=== PATIENT | female | born 1955 | race Hispanic/Latino ===

== ENCOUNTER 2018-02-12 10:05 | Emergency (ER) | payer MEDICAID ==
[2018-02-12] MEDS ORDERED: SODIUM CHLORIDE 0.9% 1000ML 1,000 ML IV ONE (10:24)
[2018-02-12] MEDS ORDERED: ONDANSETRON HCL 4 MG/2 ML VIAL ONE (10:24)
[2018-02-12 12:02] LABS: CREATININE 0.6 mg/dL (0.5-1.5); POTASSIUM 4.3 mmol/L (3.5-5.1)
[2018-02-12 12:03] LABS: BASOPHILS % (AUTO) 0.4 % (0.0-5.0); EOSINOPHILS % (AUTO) 1.5 % (0.0-8.0); HEMATOCRIT 38.1 % (36-48); LYMPHOCYTES % (AUTO) 20.2 % (21.0-51.0); MEAN CORPUSCULAR HEMOGLOBIN 28.8 pg (27.0-33.0); MEAN CORPUSCULAR HGB CONC 34.3 g/dL (32.0-36.0); MEAN CORPUSCULAR VOLUME 83.7 fL (79-99); MONOCYTES % (AUTO) 6.9 % (3.0-13.0); PLATELET COUNT (AUTO) 188 K/uL (130-400); RED BLOOD CELL COUNT(AUTO) 4.55 MIL/uL (4.00-5.50); RED CELL DISTRIBUTION WIDTH 14.1 % (11.0-15.5); WHITE BLOOD COUNT (AUTO) 6.2 K/uL (4.8-10.8)
[2018-02-12 12:07] LABS: ALBUMIN 3.6 g/dL (3.5-5.0); BILIRUBIN,DIRECT 0.1 mg/dL (0.0-0.3); BILIRUBIN,TOTAL 0.4 mg/dL (0.2-1.0); TOTAL PROTEIN, SERUM 7.5 g/dL (6.0-8.3)
[2018-02-12] MEDS ORDERED: ACETAMINOPHEN 325 MG TAB ONE (12:16)
[2018-02-12 12:30] LABS: B-TYPE NATRIURETIC PEPTIDE 12 pg/mL (0-100)
== END 2018-02-12 12:48 | disposition home or self-care (01) ==
LOC: EDH 10:05
DX: R42 Dizziness and giddiness (principal); J32.9 Chronic sinusitis, unspecified; E78.5 Hyperlipidemia, unspecified; I10 Essential (primary) hypertension; E11.9 Type 2 diabetes mellitus without complications; Z98.890 Other specified postprocedural states
CPT/HCPCS: 36415; 70450; 80048; 80076; 82550; 82948; 83880; 84484; 85025; 93005; 96361; 96374; 99285; J2405; J7030

== ENCOUNTER 2019-02-05 17:02 | Emergency (ER) | payer MEDICAID | END 2019-02-05 19:50 | disposition home or self-care (01) | LOC: EDH 17:02 | DX: M25.531 Pain in right wrist (principal); M25.561 Pain in right knee; I10 Essential (primary) hypertension; E78.5 Hyperlipidemia, unspecified; E11.9 Type 2 diabetes mellitus without complications; W18.39XA Other fall on same level, initial encounter; Y93.01 Activity, walking, marching and hiking; Y92.89 Other specified places as the place of occurrence of the external cause; Y99.8 Other external cause status | CPT/HCPCS: 29125; 73110; 73562 ==

== ENCOUNTER → 2019-08-02 | Outpatient (CLI) | payer MEDICAID | END | disposition home or self-care (01) | LOC: SHCH 10:41 | PROVIDERS: ATTEND Internal Medicine Cardiovascular Disease | DX: R94.31 Abnormal electrocardiogram [ECG] [EKG] (principal) | CPT/HCPCS: 93306 ==

== ENCOUNTER 2019-09-03 22:45 | Emergency (ER) | payer MEDICAID ==
[2019-09-03 23:52] LABS: BASOPHILS % (AUTO) 0.5 % (0.0-5.0); HEMATOCRIT 37.2 % (36-48); LYMPHOCYTES % (AUTO) 39.5 % (21.0-51.0); MEAN CORPUSCULAR HEMOGLOBIN 27.6 pg (27.0-33.0); MEAN CORPUSCULAR HGB CONC 33.3 g/dL (32.0-36.0); MEAN CORPUSCULAR VOLUME 82.7 fL (79-99); NEUTROPHILS % (AUTO) 48.7 % (40.0-77.0); PLATELET COUNT (AUTO) 235 K/uL (130-400); RED CELL DISTRIBUTION WIDTH 12.9 % (11.0-15.5); WHITE BLOOD COUNT (AUTO) 6.2 K/uL (4.8-10.8)
[2019-09-03 23:59] LABS: APPEARANCE,URINE Clear (CLEAR); BILIRUBIN,URINE Negative (NEGATIVE); COLOR,URINE Yellow (YELLOW); GLUCOSE, URINE (UA) >=1000 mg/dL (NEGATIVE); KETONES,URINE Negative (NEGATIVE); LEUKOCYTE ESTERASE ,URINE Negative (NEGATIVE); NITRATE,URINE Positive (NEGATIVE); OCCULT BLOOD,URINE Negative (NEGATIVE); PH,URINE 6.5 (5.0-8.0); PROTEIN,URINE Negative (NEGATIVE)
[2019-09-04 00:07] LABS: CREATININE 0.6 mg/dL (0.5-1.5); INR 0.94 (0.85-1.15); PARTIAL THROMBOPLASTIN TIME 27.7 SEC (26.3-35.5); POTASSIUM 3.7 mmol/L (3.5-5.1); PROTHROMBIN TIME 9.9 SEC (9.6-11.6)
[2019-09-04 00:10] LABS: BACTERIA,URINE Moderate /HPF (None Seen); RBC,URINE None Seen /HPF (0-1); SQUAMOUS EPITHELIAL CELL,UR Rare /HPF (0-2); WBC,URINE None Seen /HPF (0-1); YEAST,URINE BUDDING None Seen /HPF (None Seen)
[2019-09-04 00:12] LABS: ALBUMIN 3.8 g/dL (3.5-5.0); BILIRUBIN,TOTAL 0.3 mg/dL (0.2-1.0); TOTAL PROTEIN, SERUM 7.7 g/dL (6.0-8.3)
[2019-09-04 00:25] LABS: B-TYPE NATRIURETIC PEPTIDE 11 pg/mL (0-100)
[2019-09-04] MEDS ORDERED: KETOROLAC TROMETHAMINE 15MG/ML ONE (01:49)
[2019-09-04] MEDS ORDERED: CLONIDINE HCL 0.1 MG TABLET ONE (02:29)
[2019-09-04] MEDS ORDERED: DiphenhydrAMINE HCL 50 MG/ML VIAL ONE (02:29)
[2019-09-04] MEDS ORDERED: CEFTRIAXONE SODIUM 1 GM ONE (02:29)
== END 2019-09-04 06:29 | disposition home or self-care (01) ==
LOC: EDH 22:45
DX: J01.00 Acute maxillary sinusitis, unspecified (principal); I10 Essential (primary) hypertension; R07.89 Other chest pain; E11.9 Type 2 diabetes mellitus without complications; E78.5 Hyperlipidemia, unspecified; Z86.73 Personal history of transient ischemic attack (TIA), and cerebral infarction without residual deficits; Z90.710 Acquired absence of both cervix and uterus; Z98.890 Other specified postprocedural states
CPT/HCPCS: 36415; 70450; 71045; 72125; 80053; 81001; 82550; 83880; 84484 ×2; 85025; 85610; 85730; 93005 ×2; 96374; 96375; 99285; J0696; J1200; J1885

== ENCOUNTER → 2019-09-24 | Outpatient (CLI) | payer MEDICAID ==
[~2019-09-24] VITALS: Ht 154.9 cm; Wt 69.9 kg
[~2019-09-24] MED LIST: REGADENOSON 0.4 MG/5 ML PF SYG IVP SCH
== END | disposition home or self-care (01) ==
LOC: SHCH 08:01
PROVIDERS: ATTEND Internal Medicine Cardiovascular Disease
DX: R07.9 Chest pain, unspecified (principal); I25.2 Old myocardial infarction
CPT/HCPCS: 78452; 93017; 96374; A9500 ×2; J2785

== ENCOUNTER 2019-12-01 15:27 | Inpatient (IN) | payer MEDICAID ==
[~2019-12-01] VITALS: Ht 147.3 cm; Wt 66.9 kg
[2019-12-01 16:00] LABS: BASOPHILS % (AUTO) 0.5 % (0.0-5.0); EOSINOPHILS % (AUTO) 2.1 % (0.0-8.0); HEMATOCRIT 38.1 % (36-48); LYMPHOCYTES % (AUTO) 25.1 % (21.0-51.0); MEAN CORPUSCULAR HEMOGLOBIN 27.6 pg (27.0-33.0); MEAN CORPUSCULAR HGB CONC 32.8 g/dL (32.0-36.0); MEAN CORPUSCULAR VOLUME 84.1 fL (79-99); MONOCYTES % (AUTO) 6.4 % (3.0-13.0); NEUTROPHILS % (AUTO) 65.7 % (40.0-77.0); PLATELET COUNT (AUTO) 268 K/uL (130-400); RED BLOOD CELL COUNT(AUTO) 4.53 MIL/uL (4.00-5.50); RED CELL DISTRIBUTION WIDTH 13.1 % (11.0-15.5); WHITE BLOOD COUNT (AUTO) 8.7 K/uL (4.8-10.8)
[2019-12-01 16:19] LABS: CREATININE 0.9 mg/dL (0.5-1.5); POTASSIUM 4.3 mmol/L (3.5-5.1)
[2019-12-01 16:23] LABS: ALBUMIN 3.6 g/dL (3.5-5.0); BILIRUBIN,TOTAL 0.4 mg/dL (0.2-1.0); TOTAL PROTEIN, SERUM 7.7 g/dL (6.0-8.3)
[2019-12-01 16:24] LABS: INR 0.89 (0.85-1.15); PARTIAL THROMBOPLASTIN TIME 27.1 SEC (26.3-35.5); PROTHROMBIN TIME 9.7 SEC (9.6-11.6)
[2019-12-01] MEDS: SODIUM CHLORIDE 0.9% 1000ML 1,000 ML IV SCH (18:40)
[2019-12-01] MEDS ORDERED: DIPHENHYDRAMINE HCL 25 MG CAPSULE PO PRN (18:45)
[2019-12-01] MEDS ORDERED: DEXTROSE 50%-WATER 50 ML DISP.SYRIN IV PRN (18:45)
[2019-12-01] MEDS ORDERED: ACETAMINOPHEN 325 MG TAB PO PRN ×2 (18:45)
[2019-12-01] MEDS ORDERED: ONDANSETRON HCL 4 MG/2 ML VIAL IV PRN (18:45)
[2019-12-01] MEDS ORDERED: NITROGLYCERIN 0.4 MG SL TAB SL PRN (18:45)
[2019-12-01] MEDS ORDERED: GLUCAGON 1MG KIT 1 MG ML IM PRN (18:45)
[2019-12-01] MEDS ORDERED: FAMOTIDINE/PF 20 MG/2 ML VIAL IV ONE (19:46)
[2019-12-01] MEDS ORDERED: SODIUM CHLORIDE 0.9% 1000ML 1,000 ML IV ONE (19:46)
[2019-12-01 19:57] LABS: APPEARANCE,URINE Clear (CLEAR); BILIRUBIN,URINE Negative (NEGATIVE); COLOR,URINE Yellow (YELLOW); GLUCOSE, URINE (UA) >=1000 mg/dL (NEGATIVE); KETONES,URINE Negative (NEGATIVE); LEUKOCYTE ESTERASE ,URINE Negative (NEGATIVE); NITRATE,URINE Negative (NEGATIVE); OCCULT BLOOD,URINE Negative (NEGATIVE); PH,URINE 5.5 (5.0-8.0); PROTEIN,URINE Negative (NEGATIVE)
[2019-12-01 20:05] LABS: AMPHET/METH SCREEN,URINE NEGATIVE (NEGATIVE); BARBITURATE SCREEN, URINE NEGATIVE (NEGATIVE); BENZODIAZEPINES SCREEN,URINE NEGATIVE (NEGATIVE); CANNABINOID SCREEN,URINE NEGATIVE (NEGATIVE); COCAINE SCREEN,URINE NEGATIVE (NEGATIVE); OPIATE SCREEN,URINE NEGATIVE (NEGATIVE); PHENCYCLIDINE SCREEN,URINE NEGATIVE (NEGATIVE)
[2019-12-01 20:06] LABS: BACTERIA,URINE Few /HPF (None Seen)
[2019-12-01 20:07] LABS: MUCUS,URINE Few LPF (None Seen); SQUAMOUS EPITHELIAL CELL,UR 0-2 /HPF (0-2)
[2019-12-01] MEDS: ENOXAPARIN SODIUM 30 MG/0.3 ML SQ SCH (20:15)
[2019-12-01] MEDS: ASPIRIN 81 MG EC TAB PO SCH (20:15)
[2019-12-01] MEDS: CLOPIDOGREL BISULFATE 75 MG TAB PO SCH (20:15)
[2019-12-01] MEDS ORDERED: IOHEXOL-350 75 ML VIAL IV ONE (20:16)
[2019-12-01] MEDS ORDERED: ASPIRIN 81MG TAB.CHEW ONE (20:25)
[2019-12-01] MEDS ORDERED: ENOXAPARIN SODIUM 30 MG/0.3 ML SQ ONE (20:26)
[2019-12-01] MEDS ORDERED: CLOPIDOGREL BISULFATE 75 MG TAB ONE (20:26)
[2019-12-01 20:44] LABS: CREATINE KINASE, TOTAL 61 U/L (21-232); MYOGLOBIN 35 ng/mL (10-92); TROPONIN I < 0.04 ng/mL (0.00-0.06)
[2019-12-01] MEDS: FAMOTIDINE/PF 20 MG/2 ML VIAL IV SCH (21:00)
[2019-12-01] MEDS: INSULIN HUMULIN R 100 UNIT/ML 3ML SQ SCH (21:00)
[2019-12-02] VITALS (7 sets, daily range): BP systolic 131–167; BP diastolic 58–75
[2019-12-02 00:49] LABS: CREATINE KINASE, TOTAL 37 U/L (21-232); MYOGLOBIN 28 ng/mL (10-92); TROPONIN I < 0.04 ng/mL (0.00-0.06)
[2019-12-02] MEDS: SODIUM CHLORIDE 0.9% 1000ML 1,000 ML IV SCH ×2 (04:37→12:08)
[2019-12-02] MEDS: INSULIN HUMULIN R 100 UNIT/ML 3ML SQ SCH ×6 (05:41→19:38)
[2019-12-02 08:39] LABS: HEMATOCRIT 42.2 % (36-48); MEAN CORPUSCULAR HEMOGLOBIN 27.4 pg (27.0-33.0); MEAN CORPUSCULAR HGB CONC 32.7 g/dL (32.0-36.0); MEAN CORPUSCULAR VOLUME 83.7 fL (79-99); PLATELET COUNT (AUTO) 246 K/uL (130-400); RED BLOOD CELL COUNT(AUTO) 5.04 MIL/uL (4.00-5.50); RED CELL DISTRIBUTION WIDTH 13.2 % (11.0-15.5); WHITE BLOOD COUNT (AUTO) 6.7 K/uL (4.8-10.8)
[2019-12-02] MEDS ORDERED: ASPIRIN 325 MG TABLET PO SCH (09:00)
[2019-12-02] MEDS ORDERED: CLOPIDOGREL BISULFATE 75 MG TAB PO SCH (09:00)
[2019-12-02] MEDS ORDERED: ENOXAPARIN SODIUM 30 MG/0.3 ML SQ SCH (09:00)
[2019-12-02 09:49] LABS: ALBUMIN 3.6 g/dL (3.5-5.0); BILIRUBIN,TOTAL 0.4 mg/dL (0.2-1.0); CREATININE 0.8 mg/dL (0.5-1.5); EOSINOPHILS % (MANUAL) 4 % (1-6); LYMPHOCYTES % (MANUAL) 27 % (22-44); MAGNESIUM 1.9 mg/dL (1.80-2.40); MAN.DIFF COMMENT-IMPRESSION MANUAL DIFFERENTIAL; MONOCYTES % (MANUAL) 9 % (2-9); POTASSIUM 3.8 mmol/L (3.5-5.1); REACTIVE LYMPHOCYTES 1 % (0-0); SEGMENTED NEUTROPHILS % 59 % (40-70); TOTAL PROTEIN, SERUM 7.7 g/dL (6.0-8.3)
[2019-12-02 09:50] LABS: PLATELET MORPHOLOGY COMMENT ADEQUATE
[2019-12-02] MEDS: ASPIRIN 81 MG EC TAB PO SCH (11:13)
[2019-12-02] MEDS: FAMOTIDINE/PF 20 MG/2 ML VIAL IV SCH ×2 (11:14→21:12)
[2019-12-02] MEDS: CLOPIDOGREL BISULFATE 75 MG TAB PO SCH (11:14)
[2019-12-02] MEDS: ENOXAPARIN SODIUM 30 MG/0.3 ML SQ SCH (11:16)
--- NOTE | 2019-12-02 13:11 | NUR ---
PAGED DR. JAIN RE: CONSULT, RETURNED CALL AND STATED PT. NEEDS NEUROLOGIST, ORDER TO CONSULT DR. ARTHUR ALREADY IN PLACE
--- NOTE | 2019-12-02 18:50 | NUR ---
DR. JAIN HERE NOW TO SEE PT, VISITED WITH PT. AND REVIEWED IMAGES, STATES ON `RIGHT MEDICATION
[2019-12-02] MEDS: ATORVASTATIN CALCIUM 20 MG TABLET PO SCH (21:12)
[2019-12-03] VITALS (7 sets, daily range): BP systolic 135–185; BP diastolic 48–79
[2019-12-03] MEDS: SODIUM CHLORIDE 0.9% 1000ML 1,000 ML IV SCH ×2 (00:40→20:40)
[2019-12-03] MEDS: INSULIN HUMULIN R 100 UNIT/ML 3ML SQ SCH ×8 (05:18→20:37)
[2019-12-03 06:01] LABS: BASOPHILS % (AUTO) 0.4 % (0.0-5.0); EOSINOPHILS % (AUTO) 2.7 % (0.0-8.0); HEMATOCRIT 38.2 % (36-48); LYMPHOCYTES % (AUTO) 32.5 % (21.0-51.0); MEAN CORPUSCULAR HEMOGLOBIN 27.9 pg (27.0-33.0); MEAN CORPUSCULAR HGB CONC 33.2 g/dL (32.0-36.0); MONOCYTES % (AUTO) 8.9 % (3.0-13.0); PLATELET COUNT (AUTO) 229 K/uL (130-400); RED BLOOD CELL COUNT(AUTO) 4.55 MIL/uL (4.00-5.50); WHITE BLOOD COUNT (AUTO) 5.5 K/uL (4.8-10.8)
[2019-12-03 06:39] LABS: CREATININE 0.7 mg/dL (0.5-1.5); POTASSIUM 3.5 mmol/L (3.5-5.1)
[2019-12-03] MEDS: ASPIRIN 81 MG EC TAB PO SCH (08:40)
[2019-12-03] MEDS: CLOPIDOGREL BISULFATE 75 MG TAB PO SCH (08:40)
[2019-12-03] MEDS: ENOXAPARIN SODIUM 30 MG/0.3 ML SQ SCH (08:42)
[2019-12-03] MEDS: FAMOTIDINE/PF 20 MG/2 ML VIAL IV SCH ×2 (08:42→22:35)
--- NOTE | 2019-12-03 11:40 | NUR ---
PAGED HOSPITALIST PAGED ANSWERING SERVICE TO REPORTS ELEVATED BLOOD PRESSURE READING 185/68. PATIENT ASYMPTOMATIC AND SITTING UP IN CHAIR AT THIS TIME.
[2019-12-03] MEDS ORDERED: EMPA10TA PO (16:15)
[2019-12-03] MEDS ORDERED: METO25TA6 PO (16:15)
[2019-12-03] MEDS ORDERED: ASPI81TA40 PO (16:15)
[2019-12-03] MEDS ORDERED: ATOR40TA69 PO (16:15)
[2019-12-03] MEDS ORDERED: BISA5TAB12 PO (16:15)
[2019-12-03] MEDS ORDERED: HYDR25TA PO (16:15)
[2019-12-03] MEDS ORDERED: LORA10TA7 PO (16:15)
[2019-12-03] MEDS ORDERED: PREG100C PO (16:15)
[2019-12-03] MEDS ORDERED: VENL-63 PO (16:15)
[2019-12-03] MEDS ORDERED: PANT40TA25 PO (16:15)
[2019-12-03] MEDS ORDERED: METF-446 PO (16:15)
[2019-12-03] MEDS ORDERED: ISOS20TA7 PO (16:15)
[2019-12-03] MEDS ORDERED: LINA145C PO (16:15)
[2019-12-03] MEDS ORDERED: LOSA100T58 PO (16:15)
--- NOTE | 2019-12-03 16:52 | NUR ---
CM NOTE MEET WITH PATIENT IN ROOM. PER PATIENT, LIVES WITH SPOUSE AND ADULT SON, IS INDEPENDENT WITH ADLS, HAS PROVIDER 2HR DAILY TUE-TUESDAY AND 1HR PER DAY SAT-SUN, HAS USE OF CANE AND FEELS SAFE AT HOME. PENDING MD RECOMMENDATIONS. CM TO FOLLOW UP Addendum: 12/04/19 at 1654 by GARO ESPANA RN CM Amended: Links added.
[2019-12-03] MEDS: ATORVASTATIN CALCIUM 20 MG TABLET PO SCH (22:34)
[2019-12-04 03:46] VITALS: BP 126/62
[2019-12-04] MEDS: INSULIN HUMULIN R 100 UNIT/ML 3ML SQ SCH ×4 (05:50→12:07)
[2019-12-04 07:28] VITALS: BP 144/64
[2019-12-04] MEDS ORDERED: HYDROCHLOROTHIAZIDE 25 MG TABLET PO SCH (09:00)
[2019-12-04] MEDS: FAMOTIDINE/PF 20 MG/2 ML VIAL IV SCH (09:00)
[2019-12-04] MEDS ORDERED: ISOSORBIDE MONONITRATE 20 MG TABLET PO SCH (09:00)
[2019-12-04] MEDS ORDERED: LORATADINE 10 MG TABLET PO SCH (09:00)
[2019-12-04] MEDS: ASPIRIN 81 MG EC TAB PO SCH (09:00)
[2019-12-04] MEDS ORDERED: PANTOPRAZOLE SODIUM 40 MG TABLET.DR PO SCH (09:05)
[2019-12-04] MEDS: CLOPIDOGREL BISULFATE 75 MG TAB PO SCH (09:59)
[2019-12-04] MEDS: ENOXAPARIN SODIUM 30 MG/0.3 ML SQ SCH (10:00)
[2019-12-04 10:55] VITALS: BP 119/62
[2019-12-04] MEDS ORDERED: CLOP75TA14 PO (12:52)
--- NOTE | 2019-12-04 16:15 | NUR ---
DISCHARGE DISCHARGE TEACHING PROVIDED TO PATIENT. INFORMED OF SCHEDULED F/U WITH DR. BOND, REFERRAL NEEDED TO SCHEDULE F/U WITH DR. ARTHUR. PATIENT STATES SHE HAS F/U APPT SCHEDULED WITH HER PRIMARY MD. EDUCATIONS PROVIDED NEW RX (PLAVIX) AND CONTINUE HOME MEDICATIONS, INCLUDING HOME MEDICATION ASPIRIN AND ATORVASTATIN TO PREVENT FUTURE TIA AND REDUCE CHOLESTEROL LEVELS. INFORMED TO STOP HOME MEDICATION METOPROLOL UNTIL OKAYED TO RESUME BY PRIMARY MD. PROVIDED STROKE EDUCATION TEACHING. PATIENT VERBALIZED UNDERSTANDING OF DISCHARGE TEACHING. REMOVED 20G IV FROM RIGHT AC, CATHETER TIP INTACT. REMOVED TELE MONITOR. PATIENT TO BE DRIVEN HOME BY HER .
[2019-12-04] MEDS ORDERED: **HM**(Linaclotide (Linzess) 145 MCG) PO SCH (16:30)
[2019-12-04] MEDS ORDERED: VENLAFAXINE HCL XR 37.5 MG CAP PO SCH (21:00)
== END 2019-12-04 16:25 | disposition home or self-care (01) | DRG 47 ==
LOC: EDH 15:27 → EDHIP 15:28 → 3AH 12-02 01:37
PROVIDERS: ADMIT Hospitalist; ATTEND Hospitalist
DX: G45.9 Transient cerebral ischemic attack, unspecified (principal); E11.9 Type 2 diabetes mellitus without complications; I65.22 Occlusion and stenosis of left carotid artery; E66.9 Obesity, unspecified; I10 Essential (primary) hypertension; E78.5 Hyperlipidemia, unspecified; Z87.891 Personal history of nicotine dependence; Z90.710 Acquired absence of both cervix and uterus; Z79.84 Long term (current) use of oral hypoglycemic drugs; Z86.73 Personal history of transient ischemic attack (TIA), and cerebral infarction without residual deficits; Z68.30 Body mass index [BMI] 30.0-30.9, adult; Z79.899 Other long term (current) drug therapy
CPT/HCPCS: 36415; 70450; 70496; 70498; 70551; 71045; 80048; 80053; 80305; 81001; 82550; 82948; 83036; 83721; 83735; 83874; 84484; 85025; 85610; 85730; 93005; 93306; 93356; 99291; G0378; J1650; J1815; J3490; J7030; Q9967

== ENCOUNTER 2020-01-05 14:34 | Emergency (ER) | payer MEDICAID ==
[~2020-01-05 14:34] MED LIST changes: +ASPI81TA40 PO; +ATOR40TA69 PO; +BISA5TAB12 PO; +CLOP75TA14 PO; +EMPA10TA PO; +HYDR25TA PO; +ISOS20TA7 PO; +LINA145C PO; +LORA10TA7 PO; +LOSA100T58 PO; +METF-446 PO; +PANT40TA25 PO; +PREG100C PO; -REGADENOSON 0.4 MG/5 ML PF SYG IVP SCH; +VENL-63 PO
[2020-01-05 15:21] LABS: BASOPHILS % (AUTO) 0.3 % (0.0-5.0); EOSINOPHILS % (AUTO) 2.7 % (0.0-8.0); HEMATOCRIT 38.9 % (36-48); LYMPHOCYTES % (AUTO) 21.7 % (21.0-51.0); MEAN CORPUSCULAR HEMOGLOBIN 28.3 pg (27.0-33.0); MEAN CORPUSCULAR HGB CONC 33.4 g/dL (32.0-36.0); MEAN CORPUSCULAR VOLUME 84.6 fL (79-99); PLATELET COUNT (AUTO) 281 K/uL (130-400); RED CELL DISTRIBUTION WIDTH 12.7 % (11.0-15.5); WHITE BLOOD COUNT (AUTO) 10.9 K/uL (4.8-10.8)
[2020-01-05 15:38] LABS: CREATININE 1.4 mg/dL (0.5-1.5); POTASSIUM 3.2 mmol/L (3.5-5.1)
[2020-01-05 15:43] LABS: ALBUMIN 3.5 g/dL (3.5-5.0); BILIRUBIN,TOTAL 0.2 mg/dL (0.2-1.0); TOTAL PROTEIN, SERUM 7.1 g/dL (6.0-8.3)
[2020-01-05] MEDS ORDERED: POTASSIUM CHLORIDE 20 MEQ ERTAB PO ONE (16:04)
[2020-01-05] MEDS ORDERED: ACETAMINOPHEN 325 MG TAB ONE (18:05)
[2020-01-05 18:06] LABS: APPEARANCE,URINE Clear (CLEAR); BILIRUBIN,URINE Negative (NEGATIVE); COLOR,URINE Yellow (YELLOW); GLUCOSE, URINE (UA) >=1000 mg/dL (NEGATIVE); KETONES,URINE Negative (NEGATIVE); LEUKOCYTE ESTERASE ,URINE Trace (NEGATIVE); NITRATE,URINE Negative (NEGATIVE); OCCULT BLOOD,URINE Negative (NEGATIVE); PROTEIN,URINE Negative (NEGATIVE); UROBILINOGEN,URINE 0.2 mg/dL (0.2-1.0)
[2020-01-05 18:14] LABS: BACTERIA,URINE Rare /HPF (None Seen); RBC,URINE 0-1 /HPF (0-1); WBC,URINE 0-1 /HPF (0-1); YEAST,URINE BUDDING Few /HPF (None Seen)
[2020-01-05 18:15] LABS: SQUAMOUS EPITHELIAL CELL,UR Few /HPF (0-2)
== END 2020-01-05 18:45 | disposition home or self-care (01) ==
LOC: EDH 14:34
DX: I10 Essential (primary) hypertension (principal); R53.1 Weakness; E11.9 Type 2 diabetes mellitus without complications; E78.5 Hyperlipidemia, unspecified; Z90.49 Acquired absence of other specified parts of digestive tract; Z90.710 Acquired absence of both cervix and uterus; Z98.890 Other specified postprocedural states
CPT/HCPCS: 36415; 70450; 73610; 73630; 80053; 81001; 85025

== ENCOUNTER 2021-05-05 03:09 | Emergency (ER) | payer MEDICAID ==
[~2021-05-05] VITALS: Ht 149.9 cm; Wt 74.4 kg
[~2021-05-05 03:09] MED LIST changes: -ISOS20TA7 PO; +ISOS20TA85 PO; -PANT40TA25 PO; +PANT40TA54 PO
[2021-05-05 04:08] VITALS: BP 171/47
[2021-05-05] MEDS ORDERED: ONDANSETRON 4MG INJ IVP ONE (05:30)
[2021-05-05] MEDS ORDERED: 0.9%NACL 1000ML 1,000 ML IV ONE (05:30)
[2021-05-05] MEDS ORDERED: MORPHINE 5 MG/ML VIAL (5MG OR GREATER DOSE) IV ONE (05:30)
[2021-05-05 06:03] LABS: INR 0.94 (0.85-1.15); PROTHROMBIN TIME 10.3 SEC (9.6-11.6)
[2021-05-05 06:04] LABS: PARTIAL THROMBOPLASTIN TIME 28.2 SEC (26.3-35.5)
[2021-05-05 06:08] LABS: CREATININE 0.7 mg/dL (0.5-1.5); POTASSIUM 3.7 mmol/L (3.5-5.1)
[2021-05-05] MEDS ORDERED: METH-662 PO (07:22)
[2021-05-05] MEDS ORDERED: TRAM50TA4 PO (07:22)
[2021-05-05] MEDS ORDERED: ORPHENADRINE CITRATE 30 MG/ML ML IV SCH (07:30)
== END 2021-05-05 08:00 | disposition home or self-care (01) ==
LOC: EDH 03:09
DX: S20.212A Contusion of left front wall of thorax, initial encounter (principal); M62.830 Muscle spasm of back; S80.212A Abrasion, left knee, initial encounter; I10 Essential (primary) hypertension; F32.9 Major depressive disorder, single episode, unspecified; E11.9 Type 2 diabetes mellitus without complications; E78.00 Pure hypercholesterolemia, unspecified; Z79.84 Long term (current) use of oral hypoglycemic drugs; Z79.82 Long term (current) use of aspirin; Z98.890 Other specified postprocedural states; Z79.899 Other long term (current) drug therapy; W18.39XA Other fall on same level, initial encounter; Y93.89 Activity, other specified; Y92.89 Other specified places as the place of occurrence of the external cause; Y99.8 Other external cause status
CPT/HCPCS: 36415; 71101; 72040; 73030; 80048; 82550; 85610; 85730; 96361; 96374; 96375; 99284; J2270; J2360; J2405; J7030

== ENCOUNTER 2022-05-17 11:15 | Emergency (ER) | payer MEDICAID ==
[~2022-05-17] VITALS: Ht 157.5 cm; Wt 71.7 kg
[~2022-05-17 11:15] MED LIST changes: +METH-662 PO; +TRAM50TA4 PO
[2022-05-17 11:49] LABS: BASOPHILS % (AUTO) 0.4 % (0.0-5.0); EOSINOPHILS % (AUTO) 1.7 % (0.0-8.0); HEMATOCRIT 38.3 % (36-48); LYMPHOCYTES % (AUTO) 24.6 % (21.0-51.0); MEAN CORPUSCULAR HGB CONC 32.9 g/dL (32.0-36.0); MEAN CORPUSCULAR VOLUME 82.2 fL (79-99); MONOCYTES % (AUTO) 6.2 % (3.0-13.0); NEUTROPHILS % (AUTO) 66.7 % (40.0-77.0); PLATELET COUNT (AUTO) 255 K/uL (130-400); RED BLOOD CELL COUNT(AUTO) 4.66 MIL/uL (4.00-5.50); RED CELL DISTRIBUTION WIDTH 14.3 % (11.0-15.5); WHITE BLOOD COUNT (AUTO) 8.4 K/uL (4.8-10.8)
[2022-05-17 12:12] LABS: CREATININE 0.8 mg/dL (0.5-1.5); POTASSIUM 4.8 mmol/L (3.5-5.1)
[2022-05-17 12:19] LABS: ALBUMIN 3.5 g/dL (3.5-5.0); TOTAL PROTEIN, SERUM 7.4 g/dL (6.0-8.3)
[2022-05-17] MEDS ORDERED: MECL-226 PO (12:44)
[2022-05-17] MEDS ORDERED: MECLIZINE HCL 25 MG TABLET PO SCH (13:00)
[2022-05-17 13:56] LABS: APPEARANCE,URINE CLEAR (CLEAR); BILIRUBIN,URINE NEGATIVE (NEGATIVE); COLOR,URINE YELLOW (YELLOW); GLUCOSE, URINE (UA) >=1000 mg/dL (NEGATIVE); KETONES,URINE NEGATIVE (NEGATIVE); LEUKOCYTE ESTERASE ,URINE SMALL (NEGATIVE); NITRATE,URINE POSITIVE (NEGATIVE); OCCULT BLOOD,URINE TRACE-INTACT (NEGATIVE); PROTEIN,URINE NEGATIVE (NEGATIVE); UROBILINOGEN,URINE 0.2 mg/dL (0.2-1.0)
[2022-05-17 14:12] LABS: BACTERIA,URINE Many /HPF (None Seen); RBC,URINE 0-1 /HPF (0-1)
[2022-05-17 14:13] LABS: SQUAMOUS EPITHELIAL CELL,UR 0-2 /HPF (0-2)
[2022-05-17] MEDS ORDERED: CEPH500B PO (14:20)
[2022-05-17] MEDS ORDERED: CEFTRIAXONE 1G VIAL IM SCH (14:30)
[2022-05-17 14:48] VITALS: BP 105/48
[2022-05-17] MEDS ORDERED: LIDOCAINE HCL MPF 1% 5ML VIAL IM SCH (15:00)
== END 2022-05-17 15:10 | disposition home or self-care (01) ==
LOC: EDH 11:15
DX: N39.0 Urinary tract infection, site not specified (principal); E11.65 Type 2 diabetes mellitus with hyperglycemia; I10 Essential (primary) hypertension; R25.1 Tremor, unspecified; R42 Dizziness and giddiness
CPT/HCPCS: 99285; 70450; 71045; 84484; 80053; 85025; 87077; 87088; 87186; 81001; 36415; 96372; 93005 ×2; J0696

== ENCOUNTER 2023-01-12 13:15 | Emergency (ER) | payer MEDICAID ==
[~2023-01-12] VITALS: Ht 127 cm; Wt 69.4 kg
[~2023-01-12 13:15] MED LIST changes: +BISA-151 PO; -BISA5TAB12 PO; +CEPH500B PO; +CLOP-31 PO; -CLOP75TA14 PO; +MECL-226 PO
[2023-01-12 14:59] LABS: APPEARANCE,URINE CLEAR (CLEAR); BILIRUBIN,URINE NEGATIVE (NEGATIVE); COLOR,URINE LIGHT-YELLOW (YELLOW); GLUCOSE, URINE (UA) >=1000 mg/dL (NEGATIVE); KETONES,URINE 60 mg/dL (NEGATIVE); LEUKOCYTE ESTERASE ,URINE NEGATIVE Leu/uL (NEGATIVE); NITRATE,URINE NEGATIVE (NEGATIVE); PH,URINE 5.5 (5.0-8.0); PROTEIN,URINE NEGATIVE (NEGATIVE); UROBILINOGEN,URINE 0.2 mg/dL (0.2-1.0)
[2023-01-12] MEDS ORDERED: ACETAMINOPHEN 500 MG TABLET PO ONE (15:00)
[2023-01-12 15:07] LABS: BASOPHILS % (AUTO) 0.2 % (0.0-5.0); EOSINOPHILS % (AUTO) 0.7 % (0.0-8.0); LYMPHOCYTES % (AUTO) 7.9 % (21.0-51.0); MEAN CORPUSCULAR HEMOGLOBIN 26.3 pg (27.0-33.0); MEAN CORPUSCULAR HGB CONC 32.7 g/dL (32.0-36.0); MEAN CORPUSCULAR VOLUME 80.4 fL (79-99); MONOCYTES % (AUTO) 4.1 % (3.0-13.0); NEUTROPHILS % (AUTO) 86.7 % (40.0-77.0); PLATELET COUNT (AUTO) 236 K/uL (130-400); RED CELL DISTRIBUTION WIDTH 14.6 % (11.0-15.5); WHITE BLOOD COUNT (AUTO) 10.7 K/uL (4.8-10.8)
[2023-01-12 15:10] LABS: CREATININE 0.9 mg/dL (0.5-1.5); POTASSIUM 4.3 mmol/L (3.5-5.1)
[2023-01-12 15:15] LABS: ALBUMIN 4.1 g/dL (3.5-5.0); TOTAL PROTEIN, SERUM 8.2 g/dL (6.0-8.3)
[2023-01-12] MEDS ORDERED: ONDANSETRON ODT 4MG TAB SL ONE (15:30)
[2023-01-12] MEDS ORDERED: KETOROLAC 60 MG VIAL (30MG/ML) IM ONE (15:30)
[2023-01-12 15:59] LABS: MUCUS,URINE RARE LPF (None Seen); SQUAMOUS EPITHELIAL CELL,UR RARE /HPF (0-2)
[2023-01-12 16:57] VITALS: BP 134/49
[2023-01-12] MEDS ORDERED: IBUP-2070 PO (17:06)
[2023-01-12] MEDS ORDERED: ONDA4TAB10 PO (17:06)
== END 2023-01-12 17:20 | disposition home or self-care (01) ==
LOC: EDH 13:15
DX: R51.9 Headache, unspecified (principal); R11.2 Nausea with vomiting, unspecified; R19.7 Diarrhea, unspecified; M79.10 Myalgia, unspecified site; I10 Essential (primary) hypertension; E11.9 Type 2 diabetes mellitus without complications; E66.9 Obesity, unspecified; E78.00 Pure hypercholesterolemia, unspecified; F32.A Depression, unspecified; Z79.82 Long term (current) use of aspirin; Z79.84 Long term (current) use of oral hypoglycemic drugs; Z79.899 Other long term (current) drug therapy; Z98.890 Other specified postprocedural states
CPT/HCPCS: 99285; 71045; 84484; 80053; 85025; 81001; 36415; 96372; 93005; J1885

== ENCOUNTER 2023-09-08 20:09 | Emergency (ER) | payer MEDICARE, OTHER ==
[~2023-09-08] VITALS: Ht 154.9 cm; Wt 76.2 kg
[2023-09-08] MEDS ORDERED: 0.9%NACL 1000ML 1,000 ML IV SCH (20:30)
[2023-09-08 20:59] LABS: BASOPHILS # (AUTO) 0.02 K/uL (0.00-0.20); BASOPHILS % (AUTO) 0.2 % (0.0-5.0); EOSINOPHILS # (AUTO) 0.11 K/uL (0.00-0.70); EOSINOPHILS % (AUTO) 1.3 % (0.0-8.0); HEMATOCRIT 35.7 % (36-48); IMMATURE GRANULOCYTE ABSOLUTE 0.03 K/uL (0-1); LYMPHOCYTES # (AUTO) 1.9 K/uL (1.0-4.8); LYMPHOCYTES % (AUTO) 22.3 % (21.0-51.0); MEAN CORPUSCULAR HEMOGLOBIN 27.2 pg (27.0-33.0); MEAN CORPUSCULAR HGB CONC 31.9 g/dL (32.0-36.0); MEAN CORPUSCULAR VOLUME 85.2 fL (79-99); MONOCYTES # (AUTO) 0.6 K/uL (0.1-1.0); MONOCYTES % (AUTO) 7.1 % (3.0-13.0); NEUTROPHILS # (AUTO) 5.7 K/uL (1.8-7.7); NEUTROPHILS % (AUTO) 68.7 % (40.0-77.0); PLATELET COUNT (AUTO) 245 K/uL (130-400); RED BLOOD CELL COUNT(AUTO) 4.19 MIL/uL (4.00-5.50); RED CELL DISTRIBUTION WIDTH 16.7 % (11.0-15.5); WHITE BLOOD COUNT (AUTO) 8.3 K/uL (4.8-10.8)
[2023-09-08 21:17] LABS: B-TYPE NATRIURETIC PEPTIDE 173 pg/mL (0-100); CREATININE 0.7 mg/dL (0.5-1.5); POTASSIUM 3.6 mmol/L (3.5-5.1)
[2023-09-08 21:27] LABS: ALBUMIN 3.8 g/dL (3.5-5.0); BILIRUBIN,TOTAL 0.3 mg/dL (0.2-1.0); TOTAL PROTEIN, SERUM 7.9 g/dL (6.0-8.3)
[2023-09-08 22:09] VITALS: BP 125/74; PULSE 88; RESP 18; O2SAT 99
== END 2023-09-08 21:57 | disposition home or self-care (01) ==
LOC: EDH 20:09
DX: E11.649 Type 2 diabetes mellitus with hypoglycemia without coma (principal); E66.9 Obesity, unspecified; E78.00 Pure hypercholesterolemia, unspecified; I10 Essential (primary) hypertension; Z79.4 Long term (current) use of insulin; Z95.1 Presence of aortocoronary bypass graft
CPT/HCPCS: 99283; 96360; 84484; 80053; 83880; 85025; 82948 ×2; 36415; J7030

== ENCOUNTER 2024-02-13 09:43 | Emergency (ER) | payer OTHER ==
[~2024-02-13] VITALS: Ht 147.3 cm; Wt 67.1 kg
[2024-02-13 10:27] LABS: BASOPHILS # (AUTO) 0.03 K/uL (0.00-0.20); BASOPHILS % (AUTO) 0.2 % (0.0-5.0); EOSINOPHILS # (AUTO) 0.08 K/uL (0.00-0.70); EOSINOPHILS % (AUTO) 0.6 % (0.0-8.0); HEMATOCRIT 32.7 % (36-48); IMMATURE GRANULOCYTE ABSOLUTE 0.07 K/uL (0-1); LYMPHOCYTES # (AUTO) 1.5 K/uL (1.0-4.8); LYMPHOCYTES % (AUTO) 11.5 % (21.0-51.0); MEAN CORPUSCULAR HEMOGLOBIN 29.4 pg (27.0-33.0); MEAN CORPUSCULAR HGB CONC 33.6 g/dL (32.0-36.0); MEAN CORPUSCULAR VOLUME 87.4 fL (79-99); MONOCYTES # (AUTO) 0.9 K/uL (0.1-1.0); MONOCYTES % (AUTO) 7.2 % (3.0-13.0); NEUTROPHILS # (AUTO) 10.2 K/uL (1.8-7.7); NEUTROPHILS % (AUTO) 79.9 % (40.0-77.0); PLATELET COUNT (AUTO) 336 K/uL (130-400); RED BLOOD CELL COUNT(AUTO) 3.74 MIL/uL (4.00-5.50); RED CELL DISTRIBUTION WIDTH 12.7 % (11.0-15.5); WHITE BLOOD COUNT (AUTO) 12.7 K/uL (4.8-10.8)
[2024-02-13 10:44] LABS: CREATININE 0.9 mg/dL (0.5-1.0); POTASSIUM 3.9 mmol/L (3.5-5.1)
[2024-02-13 10:49] LABS: ALBUMIN 2.7 g/dL (3.5-5.0); BILIRUBIN,TOTAL 0.5 mg/dL (0.2-1.0); TOTAL PROTEIN, SERUM 7.4 g/dL (6.0-8.3)
[2024-02-13] MEDS ORDERED: DEXT38GE12 PO (11:02)
[2024-02-13 11:38] VITALS: BP 130/50; PULSE 58; RESP 16; O2SAT 100
== END 2024-02-13 12:08 | disposition home or self-care (01) ==
LOC: EDH 09:43
DX: E11.649 Type 2 diabetes mellitus with hypoglycemia without coma (principal); I10 Essential (primary) hypertension; E78.00 Pure hypercholesterolemia, unspecified; R56.9 Unspecified convulsions; E66.9 Obesity, unspecified; Z98.890 Other specified postprocedural states
CPT/HCPCS: 36415; 80053; 82948; 85025

== ENCOUNTER → 2024-02-27 | Outpatient (CLI) | payer OTHER ==
[~2024-02-27] MED LIST changes: -ASPI81TA40 PO; -ATOR40TA69 PO; -BISA-151 PO; -CEPH500B PO; -CLOP-31 PO; +DEXT38GE12 PO; -EMPA10TA PO; -HYDR25TA PO; -ISOS20TA85 PO; -LINA145C PO; -LORA10TA7 PO; -LOSA100T58 PO; -MECL-226 PO; -METF-446 PO; -METH-662 PO; -PANT40TA54 PO; -PREG100C PO; -TRAM50TA4 PO; -VENL-63 PO
== END | disposition home or self-care (01) ==
LOC: RAH 07:14
PROVIDERS: ATTEND Internal Medicine Medical Oncology
DX: R10.9 Unspecified abdominal pain (principal); I70.90 Unspecified atherosclerosis
CPT/HCPCS: 76700

== ENCOUNTER 2024-09-14 09:15 | Emergency (ER) | payer OTHER ==
[~2024-09-14] VITALS: Ht 149.9 cm; Wt 70.8 kg
[2024-09-14 09:39] VITALS: TEMP 98.8
--- NOTE | 2024-09-14 10:48 | NUR ---
PLACED R KNEE IMMOBILIZER AND APPLIED ICE TO KNEE PER MD VERBAL ORDER.
--- NOTE | 2024-09-14 10:55 | NUR ---
TRANSFER REQUEST FOR ORTHO SERVICE. JONATHAN METZ
[2024-09-14] MEDS: morPHINE 2 MG SYG IVP ONE ×2 (10:58→12:37)
[2024-09-14] MEDS: ondanSETRON 4MG INJ IVP ONE (10:58)
--- NOTE | 2024-09-14 11:10 | ERN ---
ED Note History of Present Illness Stated Complaint: FALL Chief Complaint: Mechanical Fall Time Seen by MD: 10:06 Dictation: This 68-year-old female was brought in by EMS because of acute pain and swelling just below the right knee after slipping and falling. The knee was hyperflexed under her. She did not hit her head and did not experience loss of consciousness and does not have neck pain or back pain. She was unable to get up off the floor due to pain and swelling in the lower leg and EMS was activated. EMS noted severe pain and gave her morphine 5 mg IV twice during transport. She denies distal weakness, numbness or tingling, she denies prodromal symptoms or syncope or near-syncope and does not have chest pain, shortness of breath, abdominal pain or urinary symptoms. She does have a remote history of a femur fracture repaired in 2012 at [facility]. Other medical problems include hypercholesterolemia, hypertension, diabetes and GERD. She has had coronary artery bypass grafting She does not smoke drink use recreational drugs. She lives at home with family Allergies: Coded Allergies: No Known Drug Allergies (Unverified Allergy, Unknown, 02/05/19) Home Meds Active Scripts Dextrose (Glucose Gel) 40 % Gel..gram., 38 GM PO BID PRN for hypoglycemia for 10 Days, #20 BOTTLE Prov:OSIRIS ORTIZ MD 02/13/24 Past Medical History Past Medical History: Diabetes-Type II, GERD, High Cholesterol, Hypertension Additional Past Medical Hx: Obesity Surgical History: Hysterectomy, CABG, Other, Surgical History Other: FEMUR SURGERY Family History: Negative Social History: Negative, Lives with family History: Not Applicable Review of System Dictation All pertinent systems reviewed, negative except as documented in the HPI The ROS is obtained from patient GENERAL/CONSTITUTIONAL: Negative except as documented in HPI. ENT: Negative except as documented in HPI. CARDIOVASCULAR: Negative except as documented in HPI. RESPIRATORY: Negative except as documented in HPI. GASTROINTESTINAL: Negative except as documented in HPI. GENITOURINARY: Negative except as documented in HPI. MUSCULOSKELETAL: Negative except as documented in HPI. SKIN: Negative except as documented in HPI. NEUROLOGIC: Negative except as documented in HPI. Initial Vital Sign VS Vital Signs Date Time Temp Pulse Resp B/P (MAP) Pulse Ox O2 Delivery O2 Flow Rate FiO2 09/14/24 09:16 98.8 49 20 150/63 98 Room Air 0 09/14/24 09:39 21 Physical Exam Dictation VITAL SIGNS: note is made of triage vital signs CONSTITUTIONAL: This is an alert interactive patient who is complaining of severe pain HEAD: Normocephalic, Atraumatic. EYES: Periorbital areas with no swelling, redness, or edema. Lids and lashes are normal. Conjunctival injection is absent. Sclera anicteric. Pupils equal, round, reactive to light. ENT: No nasal discharge noted. Posterior pharynx is without exudate, redness, swelling, masses, or evidence of obstruction. Uvula midline. Mucous membranes moist. NECK: Trachea midline, no masses palpated, and no cervical lymphadenopathy. No swelling. Supple, full range of motion without nuchal rigidity. No vertebral point tenderness. No meningismus. CHEST/AXILLA: Normal chest wall appearance and motion. No tenderness. No crepitus. CV: Normal rate, regular rhythm. No murmur. No edema. RESPIRATORY:Respiratory rate is normal. Bilateral equal breath sounds with good airflow. Normal breath sounds are noted. No rales, rhonchi or wheezes noted. No increased work of breathing, no retractions. ABDOMEN: Inspection normal. No distention is appreciated. Bowel sounds are normal. No mass or organomegaly is appreciated. There is no tenderness. No rebound. No rigidity. No voluntary or involuntary guarding. BACK: Exam deferred, no complaints and any movement increases her leg pain : No CVA tenderness or bladder tenderness. SKIN: Warm, dry, with normal turgor. Capillary refill less than 3 seconds. Normal color.No rash. No cellulitis or abscess. No evidence of acute injury. MS/Extremity: There is no calf tenderness. The patient is unable to move her right femur or tib-fib but can flex and extend the ankle well. There light touch and capillary refill as well as dorsalis pedis pulse are normal in the right foot NEURO: Awake and alert, lucid. Facies symmetric and speech is clear. Motor strength 5/5 in all extremities. Sensory grossly intact. PSYCH: Patient is appropriately attentive and cooperative without evidence of hallucination. Results (Laboratory/Radiology) Laboratory/Radiology Laboratory Tests Test 09/14/24 10:34 White Blood Count 5.3 K/uL (4.8-10.8) Red Blood Count 4.11 MIL/uL (4.00-5.50) Hemoglobin 12.4 g/dL (12.0-16.0) Hematocrit 36.0 % (36-48) Mean Corpuscular Volume 87.6 fL (79-99) Mean Corpuscular Hemoglobin 30.2 pg (27.0-33.0) Mean Corpuscular Hemoglobin Concent 34.4 g/dL (32.0-36.0) Red Cell Distribution Width 12.6 % (11.0-15.5) Platelet Count 188 K/uL (130-400) Mean Platelet Volume 12.5 fL (7.5-10.5) H Immature Granulocyte % (Auto) 0.2 % (0-1) Neutrophils (%) (Auto) 59.4 % (40.0-77.0) Lymphocytes (%) (Auto) 28.0 % (21.0-51.0) Monocytes (%) (Auto) 8.8 % (3.0-13.0) Eosinophils (%) (Auto) 3.2 % (0.0-8.0) Basophils (%) (Auto) 0.4 % (0.0-5.0) Neutrophils # (Auto) 3.2 K/uL (1.8-7.7) Lymphocytes # (Auto) 1.5 K/uL (1.0-4.8) Monocytes # (Auto) 0.5 K/uL (0.1-1.0) Eosinophils # (Auto) 0.17 K/uL (0.00-0.70) Basophils # (Auto) 0.02 K/uL (0.00-0.20) Absolute Immature Granulocyte (auto 0.01 K/uL (0-1) Nucleated Red Blood Cells 0.0 % (0.0-0.19) Sodium Level 138 mmol/L (136-145) Potassium Level 4.5 mmol/L (3.5-5.1) Chloride Level 106 mmol/L (101-111) Carbon Dioxide Level 22 mmol/L (21-32) Blood Urea Nitrogen 22 mg/dL (7-18) H Creatinine 0.7 mg/dL (0.5-1.0) Glomerular Filtration Rate Calc 95 mL/min (>90) Random Glucose 176 mg/dL (70-105) H Total Calcium 8.9 mg/dL (8.5-10.1) Labs Reviewed?: Yes ED Course ED Course Orders Procedure Category Date Status Time Knee 3vws Rt RAD 09/14/24 Resulted 10:07 Morphine 2mg Syg PHA 09/14/24 Complete (Morphine 2mg Syg) 11:00 Ondansetron 4mg Inj PHA 09/14/24 Complete (Zofran 4mg Inj) 11:00 Cbc With Differential LAB 09/14/24 Complete 10:59 Basic Metabolic Panel LAB 09/14/24 Complete 10:59 Morphine 2mg Syg PHA 09/14/24 Complete (Morphine 2mg Syg) 12:30 Current Medications Medications (Trade) Dose Ordered Sig/Cosme Route PRN Reason Start Time Stop Time Status Last Admin Dose Admin Morphine Sulfate (morPHINE 2MG SYG) 2 mg ONCE ONCE IVP 09/14/24 11:00 09/14/24 11:01 DC 09/14/24 10:58 Morphine Sulfate (morPHINE 2MG SYG) 2 mg ONCE ONCE IVP 09/14/24 12:30 09/14/24 12:31 DC 09/14/24 12:37 Ondansetron HCl (zoFRAN 4MG INJ) 4 mg ONCE ONCE IVP 09/14/24 11:00 09/14/24 11:01 DC 09/14/24 10:58 Vital Signs Date Time Temp Pulse Resp B/P (MAP) Pulse Ox O2 Delivery O2 Flow Rate FiO2 09/14/24 12:02 50 14 181/61 95 Room Air* 0 09/14/24 10:48 47 17 190/59 100 Room Air* 0 09/14/24 09:39 98.8 78 20 152/65 98 Room Air* 0 09/14/24 09:16 98.8 49 20 150/63 98 Room Air 0 Medical Decision Making MDM INITIAL IMPRESSION Initial history and physical concerning for proximal tib-fib fracture, no evidence of other significant trauma Contributing medical problems: Previous femur fracture on the right I have reviewed the triage nursing notes and vital signs. Patient is alert initially with good O2 saturation, bradycardia is present but blood pressure is 150/63 Initial plan: Radiographs DATA REVIEW I have reviewed additional NN, repeat VS, and monitoring where indicated. Heart rate, blood pressure, and O2 saturation are acceptable. Rodriguez diagnostic results: Both bone proximal tib fib fracture is identified. Other independent historian: Patient's daughters at the bedside Review of external data: None. ED COURSE Interventions: The patient has been placed in a knee immobilizer. Neurovascular exam after placement of the immobilizer remained stable We have been medicating for pain on a as needed basis. Reassessment: Patient remains hemodynamically stable DISPOSITION Final diagnostic impression: Proximal tib-fib fracture I discussed my findings, clinical impression and treatment recommendations with the patient. I have reviewed the social factors contributing to the patient's presentation and disposition planning. My final plan for disposition was made based upon clinical findings, response to treatment and discussion with the patient regarding management options. There was no orthopedic surgery available at this facility today. Hospitalization is indicated due to severe pain and risk of short term progression, complication, morbidity or mortality related to the current diagnosis I am planning transfer. sugar house supervisor was notified at the time of the x-rays were complete. We are pending a location This dictation was prepared using medical voice recognition software. Occasional voice recognition errors may occur. When identified, these errors have been corrected. While every attempt is made to correct errors during dictation, errors may still exist. At 1:05 p.m. I discussed the case with Dr. Ortiz at [facility] who approved in the emergency department to emergency department transfer for further management. DX & DISP Disposition: Transfer Decision to Admit Date: Sep 14, 2024 Decision to Admit Time: 07:50 Departure Impression: Primary Impression: Fracture of proximal end of right tibia and fibula Condition: Stable Referrals: YUMIKO WILKINSON (PCP) JESSICA FITZGERALD MD Sep 14, 2024 11:10
--- NOTE | 2024-09-14 11:25 | NUR ---
PHONE CALL PLACE TO RADIOLOGY FOR REPORT ON KNEE XRAY REPORT. JONATHAN METZ
--- NOTE | 2024-09-14 11:31 | HMCIMG ---
Exam Type: KNEE 3VWS RT Clinical Information: fall Comparison: None Findings and impression: There is osteopenia. Intramedullary vin of the distal femur seen. Transverse fractures of the proximal tibia and fibula with mild posterior angulation. No intra-articular extension. No other abnormalities.
[2024-09-14 11:43] LABS: CREATININE 0.7 mg/dL (0.5-1.0); POTASSIUM 4.5 mmol/L (3.5-5.1)
[2024-09-14 12:21] LABS: BASOPHILS # (AUTO) 0.02 K/uL (0.00-0.20); BASOPHILS % (AUTO) 0.4 % (0.0-5.0); EOSINOPHILS # (AUTO) 0.17 K/uL (0.00-0.70); EOSINOPHILS % (AUTO) 3.2 % (0.0-8.0); IMMATURE GRANULOCYTE ABSOLUTE 0.01 K/uL (0-1); LYMPHOCYTES # (AUTO) 1.5 K/uL (1.0-4.8); MEAN CORPUSCULAR HEMOGLOBIN 30.2 pg (27.0-33.0); MEAN CORPUSCULAR HGB CONC 34.4 g/dL (32.0-36.0); MEAN CORPUSCULAR VOLUME 87.6 fL (79-99); MONOCYTES # (AUTO) 0.5 K/uL (0.1-1.0); MONOCYTES % (AUTO) 8.8 % (3.0-13.0); NEUTROPHILS # (AUTO) 3.2 K/uL (1.8-7.7); NEUTROPHILS % (AUTO) 59.4 % (40.0-77.0); PLATELET COUNT (AUTO) 188 K/uL (130-400); RED BLOOD CELL COUNT(AUTO) 4.11 MIL/uL (4.00-5.50); RED CELL DISTRIBUTION WIDTH 12.6 % (11.0-15.5); WHITE BLOOD COUNT (AUTO) 5.3 K/uL (4.8-10.8)
--- NOTE | 2024-09-14 12:31 | NUR ---
TRANSFER CALL PLACE TO [facility] [phone] SPOKE WITH [facility] AND WILL CALL BACK. JONATHAN METZ
--- NOTE | 2024-09-14 13:15 | NUR ---
TRANSFER CALL BACK BY INTAKE NURSE WITH ACCEPTANCE UNDER DR GRISELDA YEPEZ TO ER PRIMARY NURSE TO CALL REPORT [phone], AND EMS WHEN READY. JONATHAN METZ
--- NOTE | 2024-09-14 14:16 | NUR ---
GAVE REPORT TO LASHAY ALEXANDER AT [facility].
--- NOTE | 2024-09-14 14:17 | NUR ---
MADE [facility] AWARE OF TRANSPORT FOR PT.
--- NOTE | 2024-09-14 14:40 | NUR ---
[facility] BY TO [employer]LECT[employer]ICAL EQUIPMENT TESTER PT.
[2024-09-14 14:42] VITALS: BP 124/42; PULSE 47; RESP 15; O2SAT 97
== END 2024-09-14 14:44 | disposition short-term general hospital (02) ==
LOC: EDH 09:15
DX: S82.831A Other fracture of upper and lower end of right fibula, initial encounter for closed fracture (principal); E11.9 Type 2 diabetes mellitus without complications; E66.9 Obesity, unspecified; E78.00 Pure hypercholesterolemia, unspecified; I10 Essential (primary) hypertension; K21.9 Gastro-esophageal reflux disease without esophagitis; Z90.710 Acquired absence of both cervix and uterus; Z95.1 Presence of aortocoronary bypass graft; Z79.899 Other long term (current) drug therapy; Z98.890 Other specified postprocedural states; W01.0XXA Fall on same level from slipping, tripping and stumbling without subsequent striking against object, initial encounter; Y93.89 Activity, other specified; Y92.89 Other specified places as the place of occurrence of the external cause; Y99.8 Other external cause status
CPT/HCPCS: 99285; 96374; 29505; 96375; 73562; 80048; 85025; 36415; 96376; J2270 ×2; J2405